=== PATIENT | male | born 1975 | race Caucasian/White ===

== ENCOUNTER 2016-07-28 09:25 | Emergency (ER) | payer BC ==
[~2016-07-28] VITALS: Ht 185.4 cm; Wt 86.3 kg
[2016-07-28 10:10] LABS: CHLORIDE 109 mEq/L (99-109); POTASSIUM 3.4 mEq/L (3.7-5.4); SODIUM 140 mEq/L (136-147)
[2016-07-28 10:12] LABS: GLUCOSE 108 mg/dL (70-99); HEMATOCRIT 45.9 % (38.0-50.0); MCH 31.7 PG (29.0-34.0); MCHC 36.4 G/DL (30.0-36.0); MCV 87.3 FL (86-99); MEAN PLAT.VOLUME 10.6 uM^3 (9.0-12.4); PLATELET COUNT 212 K/uL (156-360); RBC DIS.WIDTH-CV 12.4 % (11.8-14.6); RBC DIS.WIDTH-SD 39.8 % (39-53); RED BLOOD COUNT 5.26 M/uL (4.00-5.50); WHITE BLOOD COUNT 9.5 K/uL (4.1-10.2)
[2016-07-28 10:13] LABS: ANION GAP 12 MEQ/L (2-14)
[2016-07-28 10:14] LABS: TOTAL BILIRUBIN 1.3 mg/dL (0.0-1.0)
[2016-07-28 10:15] LABS: ALKALINE PHOSPHATASE 114 IU/L (3-129)
[2016-07-28 10:17] LABS: UREA NITROGEN (BUN) 16 mg/dL (9-23)
[2016-07-28 10:18] LABS: GFR ESTIMATE (CALCULATED) > 59 mL/min/
[2016-07-28 10:19] LABS: LIPASE 22 U/L (1.0-51.0)
[2016-07-28 10:33] LABS: TROP-I INTERPRETATION NEGATIVE; TROPONIN-I < 0.01 ng/mL (0.0-0.30)
[2016-07-28 11:06] LABS: ADD MIUA? YES; BILIRUBIN NEGATIVE; BLOOD NEGATIVE; COLOR YELLOW ((YELLOW)); GLUCOSE (STRIP) NEGATIVE; KETONES 5; LEUKOCYTES NEGATIVE; NITRITE NEGATIVE; PROTEIN (STRIP) NEGATIVE
[2016-07-28 11:11] LABS: BACTERIA NONE SEEN /HPF; CASTS NONE SEEN /LPF; CRYSTALS NONE SEEN; EPITHELIAL CELLS RARE /HPF; MUCUS TRACE /LPF; UCUL ADDED? NO; WHITE BLOOD CELLS 0-5 /HPF (0-5)
[2016-07-28] MEDS ORDERED: ANTIVERT25 MG PO (11:15)
[2016-07-28 11:19] LABS: RED BLOOD CELLS 0-5 /HPF (0-5)
[2016-07-28 11:23] VITALS: BP 107/70
== END 2016-07-28 11:34 | disposition home or self-care (01) ==
LOC: EME 09:25
DX: R42 Dizziness and giddiness (principal); R11.0 Nausea; R19.7 Diarrhea, unspecified
CPT/HCPCS: 80053; 81003; 83690; 84484; 85027; 93005; 99281; 99285; J2405; J7030